=== PATIENT | female | born 1940 | race Caucasian/White ===

== ENCOUNTER 2018-04-14 15:24 | Inpatient (IN) | payer OTHER ==
[~2018-04-14] VITALS: Ht 149.9 cm; Wt 45.4 kg
[2018-04-14] MEDS ORDERED: VASOTEC20 M1 PO (15:48)
--- NOTE | 2018-04-14 15:49 | NUR ---
PACIENTE AL MOMENTO ESTABLE, SIGNOS VITALES ESTABLES, ALERTA Y ORIENTADA X3 REFIERE DOLOR EN ESPALDA BAJA, ESTA INDICA QUE EL JARROD DE SELENA LE REALIZARON UN ESTUDIO Y DESDE ENTONCES TIENE DOLOR. SE CONTINUA MONITOREANDO POR CAMBIOS. PACIENTE NO REFIERE TENER DOLOR ABDOMINAL SINO LOW BACK PAIN.
--- NOTE | 2018-04-14 17:33 | NUR ---
SE CANALIZA PACIENTE Y SE SARKIS MUESTRAS, PACIENTE AL MOMENTO ESTABLE, SIGNOS VITALES ESTABLES. SE CONTINUA MONITOREANDO POR CAMBIOS. PROCESOS REALIZADOS POR MS. CARRIE RN .
--- NOTE | 2018-04-15 07:43 | NUR ---
PTE ALERTA Y ORIENTADA X 3 ESFERAS EN ISABELLE CON BARANDAS ELEVADAS,SIN FAMILIAR AL MOMENTO DE LA SARAN.AREA DE VENOPUNCION PATENTE Y CHENCHO DE EDENA CON FLUIDOS DE MANTENIMIENTO BAJANDO SIN DIFICULTAD.PTE PENDIENTE A EVALUACION DE DR CLARK.
[2018-04-24] MEDS ORDERED: ALDACTONE50 MG PO (08:10)
== END 2018-04-24 13:18 | disposition home or self-care (01) | DRG 331 ==
LOC: ER 15:24 → SEC-K 04-15 08:30 → SURG 04-15 08:30
PROVIDERS: ADMIT Surgery
PROC: 0DT80ZZ Resection of Small Intestine, Open Approach (ICD-10-PCS; 2018-04-15)
PROC: 0YQ60ZZ Repair Left Inguinal Region, Open Approach (ICD-10-PCS; principal; 2018-04-15 12:00)
DX: K40.30 Unilateral inguinal hernia, with obstruction, without gangrene, not specified as recurrent (principal); K40.40 Unilateral inguinal hernia, with gangrene, not specified as recurrent; B08.8 Other specified viral infections characterized by skin and mucous membrane lesions; I10 Essential (primary) hypertension; E87.6 Hypokalemia; M54.5 Low back pain; Z88.0 Allergy status to penicillin

== ENCOUNTER 2023-01-15 10:57 | Emergency (ER) | payer OTHER ==
[~2023-01-15] VITALS: Ht 147.3 cm; Wt 56.7 kg
[~2023-01-15 10:57] MED LIST: ALDACTONE50 MG PO; VASOTEC20 M1 PO
[2023-01-15 11:33] LABS: HEMATOCRIT 36.6 % (36.0-45.00); HEMOGLOBIN 12.7 g/dL (12.0-15.00); MEAN CELL VOLUME 87.9 fL (80.00-100.00); MEAN CORPUSCULAR HEMOGLOBIN 30.5 pg (27.00-32.0); MEAN CORPUSCULAR HGB CONC 34.7 g/dl (32.0-36.0); PLATELET COUNT 362 K/uL (150-450); RED BLOOD COUNT 4.16 M/uL (4.00-6.00); RED CELL DISTRIBUTION WIDTH 13.4 % (11.5-14.5)
[2023-01-15 12:30] LABS: URINE APPEARANCE Clear; URINE BILIRRUBIN Negative (NEGATIVE); URINE BLOOD Trace; URINE COLOR Yellow; URINE GLUCOSE Negative (NEGATIVE); URINE LEUKOCYTE Negative; URINE NITRATE Negative; URINE PROTEIN Trace (NEGATIVE); URINE UROBILINOGEN 0.2 E.U./dl
[2023-01-15 12:31] LABS: URINE EPITHELIAL CELLS 2.4 uL (0.0-38.8); URINE RBC 28.3 uL (0.0-20.8)
[2023-01-15 12:34] LABS: URINE BACTERIA 0 uL (0.0-1933); URINE WBC 0.9 uL (0.0-23.2)
[2023-01-15 13:27] LABS: CALCIUM 9.6 mg/dL (8.5-10.1); CREATININE SERUM 0.62 mg/dL (0.55-1.02); GFR 92.62; POTASSIUM 3.47 mEq/L (3.5-5.1)
== END 2023-01-15 14:27 | disposition home or self-care (01) ==
LOC: ER 10:57
PROVIDERS: General Practice
DX: R10.9 Unspecified abdominal pain (principal); I10 Essential (primary) hypertension; Z88.0 Allergy status to penicillin; Z88.6 Allergy status to analgesic agent; N39.0 Urinary tract infection, site not specified

== ENCOUNTER 2023-01-23 17:56 | Inpatient (IN) | payer OTHER ==
[~2023-01-23] VITALS: Ht 119.4 cm; Wt 54.4 kg
[2023-01-23 18:59] LABS: HEMATOCRIT 35.2 % (36.0-45.00); HEMOGLOBIN 12.3 g/dL (12.0-15.00); MEAN CELL VOLUME 86.7 fL (80.00-100.00); MEAN CORPUSCULAR HEMOGLOBIN 30.3 pg (27.00-32.0); PLATELET COUNT 328 K/uL (150-450); RED BLOOD COUNT 4.05 M/uL (4.00-6.00)
[2023-01-23 19:03] LABS: PH,URINE 6.5 (5.0-8.0); URINE APPEARANCE Clear; URINE BILIRRUBIN Negative (NEGATIVE); URINE BLOOD Negative; URINE COLOR Yellow; URINE GLUCOSE Negative (NEGATIVE); URINE LEUKOCYTE Negative; URINE NITRATE Negative; URINE PROTEIN Negative (NEGATIVE); URINE UROBILINOGEN 0.2 E.U./dl
[2023-01-23 19:06] LABS: URINE BACTERIA 12.5 uL (0.0-1933); URINE RBC 7.7 uL (0.0-20.8); URINE WBC 11.7 uL (0.0-23.2)
[2023-01-23 19:34] LABS: ALBUMIN 4.1 gm/dL (3.4-5.0); BILIRUBIN TOTAL 0.66 mg/dL (0.3-1.2); CALCIUM 9.4 mg/dL (8.5-10.1); CREATININE SERUM 0.6 mg/dL (0.55-1.02); GFR 96.19; GLOBULINA 3.4 G/DL (2.4-3.5); TOTAL PROTEIN 7.5 gm/dL (6.4-8.2)
[2023-01-23 19:41] LABS: POTASSIUM 2.79 mEq/L (3.5-5.1)
[2023-01-24 04:36] LABS: PHOSPHOROUS 2.2 mg/dL (2.5-4.9)
[2023-01-24 04:43] LABS: INR 1.03; PARTIAL THROMBOPLASTIN TIME 26.1 SECONDS (22.0-34.0); PROTHROMBIN TIME 10.8 SECONDS (9.0-11.5)
[2023-01-25 07:54] LABS: ALBUMIN 3.4 gm/dL (3.4-5.0); BILIRUBIN TOTAL 0.52 mg/dL (0.3-1.2); CALCIUM 8.7 mg/dL (8.5-10.1); CREATININE SERUM 0.54 mg/dL (0.55-1.02); GFR 108.62; GLOBULINA 2.6 G/DL (2.4-3.5); POTASSIUM 4.14 mEq/L (3.5-5.1); URIC ACID 3.2 mg/dL (2.5-7.5)
== END 2023-01-25 22:07 | disposition home or self-care (01) | DRG 641 ==
LOC: ER 17:56 → SEC-K 23:51 → SURG 23:51 → SEC-K 01-24 08:20 → SURG 01-24 08:23
PROVIDERS: General Practice; Internal Medicine; ADMIT Internal Medicine; ATTEND Internal Medicine
PROC: BW21ZZZ Computerized Tomography (CT Scan) of Abdomen and Pelvis (ICD-10-PCS; principal; 2023-01-23)
DX: E87.6 Hypokalemia (principal); E87.1 Hypo-osmolality and hyponatremia; I10 Essential (primary) hypertension; Z74.01 Bed confinement status

== ENCOUNTER 2023-02-11 22:28 | Emergency (ER) | payer OTHER ==
[~2023-02-11] VITALS: Ht 147.3 cm; Wt 47.6 kg
[2023-02-11] MEDS ORDERED: FOLIC ACID20 MG PO (22:45)
[2023-02-11] MEDS ORDERED: ATORVASTATIN CA20 MG PO (22:45)
[2023-02-11] MEDS ORDERED: HYDROCHLOROTHIA25 MG PO (22:45)
[2023-02-12 00:18] LABS: HEMATOCRIT 33.3 % (36.0-45.00); HEMOGLOBIN 11.7 g/dL (12.0-15.00); MEAN CORPUSCULAR HEMOGLOBIN 30.3 pg (27.00-32.0); MEAN CORPUSCULAR HGB CONC 35.3 g/dl (32.0-36.0); PLATELET COUNT 362 K/uL (150-450); RED BLOOD COUNT 3.87 M/uL (4.00-6.00); RED CELL DISTRIBUTION WIDTH 13.5 % (11.5-14.5)
[2023-02-12 00:19] LABS: PH,URINE 7.5 (5.0-8.0); URINE APPEARANCE Clear; URINE BILIRRUBIN Negative (NEGATIVE); URINE BLOOD Trace; URINE COLOR Yellow; URINE GLUCOSE Negative (NEGATIVE); URINE LEUKOCYTE Trace; URINE NITRATE Negative; URINE PROTEIN 30 (NEGATIVE)
[2023-02-12 00:23] LABS: URINE EPITHELIAL CELLS 4.1 uL (0.0-38.8); URINE RBC 69.5 uL (0.0-20.8); URINE WBC 32.5 uL (0.0-23.2)
[2023-02-12 00:40] LABS: ALBUMIN 4.1 gm/dL (3.4-5.0); BILIRUBIN TOTAL 0.66 mg/dL (0.3-1.2); CREATININE SERUM 0.56 mg/dL (0.55-1.02); GFR 104.16; GLOBULINA 3.1 G/DL (2.4-3.5); POTASSIUM 3.19 mEq/L (3.5-5.1); TOTAL PROTEIN 7.2 gm/dL (6.4-8.2)
== END 2023-02-12 02:22 | disposition home or self-care (01) ==
LOC: ER 22:29
PROVIDERS: General Practice
DX: N39.0 Urinary tract infection, site not specified (principal); Z88.0 Allergy status to penicillin; Z88.6 Allergy status to analgesic agent; N76.0 Acute vaginitis; R30.0 Dysuria

== ENCOUNTER 2023-03-01 03:21 | Inpatient (IN) | payer OTHER ==
[~2023-03-01] VITALS: Ht 152.4 cm; Wt 43.1 kg
[~2023-03-01 03:21] MED LIST changes: +ATORVASTATIN CA20 MG PO; +FOLIC ACID20 MG PO; +HYDROCHLOROTHIA25 MG PO
[2023-03-01 06:06] LABS: ALBUMIN 4.2 gm/dL (3.4-5.0); BILIRUBIN TOTAL 0.81 mg/dL (0.3-1.2); CALCIUM 9.5 mg/dL (8.5-10.1); CREATININE SERUM 0.51 mg/dL (0.55-1.02); GFR 116.03; GLOBULINA 3.3 G/DL (2.4-3.5); TOTAL PROTEIN 7.5 gm/dL (6.4-8.2)
[2023-03-01 06:16] LABS: HEMATOCRIT 34.9 % (36.0-45.00); HEMOGLOBIN 12.5 g/dL (12.0-15.00); MEAN CELL VOLUME 85.7 fL (80.00-100.00); MEAN CORPUSCULAR HEMOGLOBIN 30.7 pg (27.00-32.0); MEAN CORPUSCULAR HGB CONC 35.8 g/dl (32.0-36.0); PLATELET COUNT 324 K/uL (150-450); RED BLOOD COUNT 4.07 M/uL (4.00-6.00); RED CELL DISTRIBUTION WIDTH 13.2 % (11.5-14.5)
[2023-03-01 06:22] LABS: PH,URINE 6.5 (5.0-8.0); URINE APPEARANCE Clear; URINE BILIRRUBIN Negative (NEGATIVE); URINE COLOR Yellow; URINE GLUCOSE Negative (NEGATIVE); URINE LEUKOCYTE Negative; URINE NITRATE Negative; URINE PROTEIN Trace (NEGATIVE); URINE UROBILINOGEN 0.2 E.U./dl
[2023-03-01 06:24] LABS: POTASSIUM 2.83 mEq/L (3.5-5.1)
[2023-03-01 06:25] LABS: URINE EPITHELIAL CELLS 1.5 uL (0.0-38.8); URINE RBC 19.8 uL (0.0-20.8)
[2023-03-01 07:15] LABS: URINE BLOOD Trace; URINE WBC 0.7 uL (0.0-23.2)
[2023-03-01 18:31] LABS: PARTIAL THROMBOPLASTIN TIME 26.3 SECONDS (22.0-34.0); PROTHROMBIN TIME 10.5 SECONDS (9.0-11.5)
[2023-03-01 18:37] LABS: PHOSPHOROUS 2.6 mg/dL (2.5-4.9)
[2023-03-03 21:29] LABS: HEMATOCRIT 34.4 % (36.0-45.00); HEMOGLOBIN 12.1 g/dL (12.0-15.00); MEAN CELL VOLUME 89.8 fL (80.00-100.00); MEAN CORPUSCULAR HEMOGLOBIN 31.7 pg (27.00-32.0); MEAN CORPUSCULAR HGB CONC 35.3 g/dl (32.0-36.0); PLATELET COUNT 333 K/uL (150-450); RED BLOOD COUNT 3.83 M/uL (4.00-6.00)
[2023-03-03 21:51] LABS: ALBUMIN 3.7 gm/dL (3.4-5.0); BILIRUBIN TOTAL 0.41 mg/dL (0.3-1.2); CREATININE SERUM 0.6 mg/dL (0.55-1.02); GFR 96.19; GLOBULINA 2.9 G/DL (2.4-3.5); POTASSIUM 3.73 mEq/L (3.5-5.1); TOTAL PROTEIN 6.6 gm/dL (6.4-8.2)
== END 2023-03-04 17:00 | disposition home or self-care (01) | DRG 641 ==
LOC: ER 03:21 → MEDJ 17:48
PROVIDERS: General Practice; ADMIT Specialist; ATTEND Specialist
PROC: BW21YZZ Computerized Tomography (CT Scan) of Abdomen and Pelvis using Other Contrast (ICD-10-PCS; principal; 2023-03-01)
DX: E87.1 Hypo-osmolality and hyponatremia (principal); E87.6 Hypokalemia; I10 Essential (primary) hypertension; Z20.822 Contact with and (suspected) exposure to COVID-19